=== PATIENT | male | born 1975 | race Caucasian/White ===

== ENCOUNTER 2016-12-15 08:07 | Emergency (ER) | payer OTHER, BC ==
[~2016-12-15] VITALS: Ht 165.1 cm; Wt 77.2 kg
[~2016-12-15 08:07] MED LIST: DOXY100C2 PO
[2016-12-15 08:15] VITALS: BP 145/120; TEMP 36.6; Ht 165.1 cm; Wt 77.2 kg
[2016-12-15] MEDS ORDERED: XYLOCAINE 1%/SOD BICARB 20 ML VIAL INFIL ONE (08:15)
--- NOTE | 2016-12-15 09:05 | EMERGENCY ROOM VISIT NOTE ---
ED Visit Note First contact with patient: 08:11 CHIEF COMPLAINT: Right thumb laceration HISTORY OF PRESENT ILLNESS: This 41-year-old male presents the ER with chief complaint of a laceration to his right thumb which occurred at work just prior to arrival. The patient states that he was cleaning out a wood lip of shank cutter and excellently cut his right thumb. The patient's tetanus is up-to-date. The patient denies a names and tingling of the finger. The patient states he can move the thumb without difficulty. The bleeding has stopped. The patient is right-hand dominant. REVIEW OF SYSTEMS: 6 system review was performed and was negative unless stated otherwise in history of present illness. PMH: The patient is healthy; arthroscopic shoulder and knee surgery SOCIAL HISTORY: Patient admits to chewing tobacco and occasional alcohol use. PHYSICAL EXAM: Vital Signs: Were reviewed Reviewed Nurse's notes. GENERAL: 41- year-old white male appears in no acute distress. MENTAL Status: Alert and oriented 3. RIGHT THUMB: There is a 2 cm long laceration on the dorsal aspect of the proximal phalanx. The edges gape apart with traction. There is no foreign material in the wound and it looks clean. There is no bleeding. No deep structures such as tendons or nerves are seen in the base of the wound. Extension of the finger is full and strong. EMERGENCY DEPARTMENT COURSE: The patient was evaluated. Wound Repair: Was performed by the PA student under my direct supervision. Complexity: Basic. Verbal consent was obtained after the risks and benefits were explained, including but not limited to bleeding, scarring, infection, pain, and bone/joint /nerve damage. The skin was prepped with betadine and a sterile field set. A digital block was performed using 1% buffered lidocaine. Copious irrigation was performed using sterile saline. The wound was explored for foreign bodies and none found. Debridement was not performed. The wound edges were approximated using 5-0 Ethilon with 7 simple interrupted sutures. Hemostasis and excellent approximation was achieved. Antibacterial ointment and a sterile dressing applied. Detailed wound care instructions and signs and symptoms of infection reviewed with the patient. No complications and the patient tolerated the procedure well. The patient was placed in a long metal finger splint. The patient was discharged home in stable condition. DIAGNOSIS: 2 cm right thumb laceration DISCHARGE INSTRUCTIONS & TREATMENT: Keep finger in splint except for bathing until sutures are removed. Watch the area carefully for signs of infection such as redness, swelling, or tenderness. Return if any of these appear for re- evaluation and consideration of antibiotic therapy. The stitches should be taken out in 10 days. Keep the wound covered with Bacitracin ointment and a bandage for 3 days. Read the wound care general instructions that you were given also. Problem List Surgical Problems: (1) S/P knee surgery Status: Resolved (2) S/P tonsillectomy Status: Resolved (3) Status post subacromial decompression Status: Resolved Current/Historical Medications Scheduled Doxycycline Hyclate (Vibramycin), 100 MG PO BID Allergies Coded Allergies: Codeine (Verified Allergy, Intermediate, hallucinations, 11/27/15) Vital Signs Date Time Temp Pulse Resp B/P (MAP) Pulse Ox O2 Delivery O2 Flow Rate FiO2 12/15/16 08:15 36.6 90 18 145/120 99 Room Air Departure Information Referrals Taiwo Cornelius M.D.([facility]) (PCP) Patient Instructions My [facility]
[2016-12-15 09:34] VITALS: PULSE 66; O2SAT 100
== END 2016-12-15 09:35 | disposition home or self-care (01) ==
LOC: C.EDB 08:09 → C.EDA 09:35
DX: S61.011A Laceration without foreign body of right thumb without damage to nail, initial encounter (principal); W45.8XXA Other foreign body or object entering through skin, initial encounter; Y92.89 Other specified places as the place of occurrence of the external cause; Y99.0 Civilian activity done for income or pay; F17.220 Nicotine dependence, chewing tobacco, uncomplicated; Z98.890 Other specified postprocedural states; Z88.5 Allergy status to narcotic agent